=== PATIENT | female | born 1985 | race Caucasian/White ===

== ENCOUNTER 2019-09-09 00:28 | Day surgery (SDC) | payer BC ==
[2019-09-09] MEDS ORDERED: hydrALAZINE 20 MG/ML VIAL SLOW IVP PRN (01:21)
--- NOTE | 2019-09-09 04:56 | SS ---
DATE OF ADMISSION: 09/09/2019 DATE OF DISCHARGE: 09/09/2019 REGULAR PHYSICIAN: Manjit Solorzano DO, MS EVALUATING PHYSICIAN: Esteban Lopez MD CHIEF COMPLAINT: Spotting at home. HISTORY OF PRESENT ILLNESS: Ms. Pretty is a 34-year-old white G1, P0, with estimated date of confinement of December 12, 2019, who presents complaining of a small amount of spotting, which she noticed at 11 p.m. She denies associated cramping, contractions, or loss of fluid. Her care has been with Dr. Solorzano and has been uncomplicated. She states that she had an ultrasound at 20 weeks and was told her placenta was anterior. PAST MEDICAL HISTORY: None. PAST SURGICAL HISTORY: Advance teeth. CURRENT MEDICATIONS: 1. vitamins. 2. Aspirin. ALLERGIES: NO KNOWN ALLERGIES. SOCIAL HISTORY: Denies tobacco, alcohol, or drug use. FAMILY HISTORY: Unremarkable. REVIEW OF SYSTEMS: Denies nausea, vomiting, fever, chills, or ruptured membranes. PHYSICAL EXAMINATION: VITAL SIGNS: Blood pressure is 116/64. The remainder of her vital signs are stable. GENERAL: She is pleasant and in no distress. ABDOMEN: Soft, nontender, and gravid. Speculum exam of the vagina shows copious discharge consistent with yeast. No blood is seen. Her cervix is visually closed. heart rate tracing is stable with no decelerations. No uterine activity seen. ASSESSMENT: 1. A 26 and 4/7th week intrauterine . 2. Yeast infection by clinical exam. PLAN: The patient was reassured tonight that no further bleeding was seen. She was given a prescription for Diflucan 150 mg one tablet p.o. with one refill to be used in 4 or 5 days, if she remains with discharge. She was told to follow up with her next scheduled visit with Dr. Solorzano. The patient understood her discharge instructions and was sent home in good condition. Job ID: [id number]
== END 2019-09-09 01:40 | disposition home health service (06) ==
LOC: L&D/OP 00:28
PROVIDERS: ATTEND Obstetrics & Gynecology
DX: O26.852 Spotting complicating pregnancy, second trimester (principal); O98.812 Other maternal infectious and parasitic diseases complicating pregnancy, second trimester; B37.9 Candidiasis, unspecified; Z3A.26 26 weeks gestation of pregnancy
CPT/HCPCS: 99283

== ENCOUNTER 2019-11-17 10:36 | Inpatient (IN) | payer BC ==
[2019-11-17 11:58] VITALS: BMI 34.4
[2019-11-17] MEDS: Lactated Ringer's 1,000 ML IV SCH ×2 (12:10→13:35)
[2019-11-17] MEDS ORDERED: Ondansetron PF 4 MG/2 ML Vial IVP PRN ×4 (15:00→23:45)
[2019-11-17] MEDS ORDERED: hydrALAZINE 20 MG/ML VIAL SLOW IVP PRN ×4 (15:00→23:45)
--- NOTE | 2019-11-17 15:41 | ULT ---
EXAM: US Biophysical Profile PROVIDED CLINICAL HISTORY: Failed BPP in office, follow-up evaluation. COMPARISON: None FINDINGS: There is evidence of a single intrauterine gestation in breech presentation. Cardiac Doppler does dem onstrates heart tones with a heart rate of 158 bpm. The placenta is located posteriorly. Leading edge of the placenta in relation to the cervical os is not well evaluated on thi s exam. Subjectively, there is a decrease in amniotic fluid with decreased amniotic fluid index of 5.4 cm. Biophysical profile: tone-0 breathing-0 movements-2 Amniotic fluid volume-0 IMPRESSION: 1. Diminished biophysical profile score of 2 out of 8. 2. Oligohydramnios. 3. Single intrauterine gestation in breech presentation with heart tones documented. 4. Above findings were discussed with Sofía obstetrical nurse on 11/17/2019, by the weight reducing technician nologistMaria Eugenia at the termination of this exam.
[2019-11-17 17:17] LABS: #Basophils 0.1 thou/uL (0.0-0.2); #Lymphocytes 1.1 thou/uL (1.20-3.40); #Monocytes 0.4 thou/uL (0.11-0.59); #Neutrophils 5.9 thou/uL (1.40-6.50); %Basophils 1.4 % (0.0-1.0); %Eosinophils 0.5 % (0.0-10.0); %Monocytes 5.2 % (0.0-10.0); %Neutrophils 77.8 % (42.0-75.0); Hemoglobin 15.2 g/dL (12.0-16.0); Mean Corpuscular HGB CONC 33.8 g/dL (32.0-36.0); Mean Corpuscular Hemoglobin 32.5 pg (27.0-31.0); Mean Corpuscular Volume 96.3 fL (78.0-98.0); Mean Platelet Volume 9.4 fL (7.4-10.4); Platelet Count 184 thou/uL (130-400); RBC Distribution Width 12.4 % (11.5-14.5); Red Blood Cell (RBC) Count 4.69 mill/uL (4.20-5.40); White Blood Cell (WBC) Count 7.6 thou/uL (4.8-10.8)
[2019-11-17] MEDS ORDERED: Promethazine HCl 25 MG/ML VIAL IM PRN ×2 (17:50→21:01)
[2019-11-17 17:55] LABS: Syphilis Antibody Nonreactive (Nonreactive); Syphilis Antibody Index 0.05 S/CO (<1.00 Non-Reactive)
--- NOTE | 2019-11-17 17:55 | PDOC.LDHP ---
Labor and Delivery H&P Chief complaint: other (Patient was sent from office following a routine HILARIO for AMA and GDM A1. During the ultrasound, the fluid was noted to be low, so the displayer completed a BPP, which was scored as a 2/8 for breathing.) HPI: Patient is doing well. she has noticed a decrease in movement, but mainly the baby only moves at night. Current gestational age (weeks): 36 (and 3) Due date: 12/12/19 Grav: 1 Para: 0 Abnormal US findings: Yes (BPP 2/8. off for fluid, movement, tone) Current medications: pre-kiesha vitamins, other (81 mg Aspirin) Previous surgical history: other ([place] teetch extration) Allergies/Adverse Reactions: Allergies Allergy/AdvReac Type Severity Reaction Status Date / Time No Known Allergies Allergy Verified 09/09/19 00:54 Social history: none - Physical Exam Vital signs reviewed and normal: yes General: resting Heart: RRR Lungs: nonlabored breathing Abdomen: gravid Extremeties: no edema FHT: category 1 - Vaginal Exam cm dilated: 0 (BREECH presentation) - OB Labs Blood type: AB RH: positive Antibody Screen: negative HIV: negative RPR: negative HEPSAg: negative 1 hour GCT: positive 3 hour GTT: failed GBS: unknown (Pending) Urine drug screen: negative Rubella: immune - Assessment AMA, primigravida, Breech presentation, with non-reassuring surveillance. - Plan -: continuous monitoring in L&D with Cat 1 strip IV fluids BPP repeated 1600 and score remains 2/8 or 4/10 with NST Steroids were not administered due to gestational age of 36 weeks and GDM. Proceed with PCS - Dr. Cordova notified and available to be primary for PCS. Agrees with plan of care.
[2019-11-17] MEDS ORDERED: Bicitra 30 ML UDCUP PO SCH ×2 (18:00)
--- NOTE | 2019-11-17 18:03 | PDOC.EVN ---
Event Note - Event Note Event Note: The patient is a 34yo female with an iup 36wks 3days complicated by A1DM. After routine surveillance fetus was noted to have a BPP of 2/8 today in the clinic and was sent to L&D for further evaluation. Of note fetus is also breech. repeat BPP after IV hydration and several hours of monitoring by FHT a repeat BPP was again 2/8. Recommendations were made for delivery. Ms Malka Tan, her primary OB provider has asked me to perform the csection. I have introduced myself to Ms Pretty and explained the situation. The patient expressed understanding and has no questions. fetus by FHT is reassuring at this time. Plan is to proceed after a scheduled cs is completed and the room is ready.
[2019-11-17 18:08] LABS: HBSAB Concentration 62.23 mIU/mL; Hep B Surf AB Reactive (NonReactive)
[2019-11-17] MEDS: CEFAZOLIN 2 GM in Premix Bag 1 BAG IVPB SCH ×2 (18:51→18:59)
[2019-11-17] MEDS ORDERED: Dexamethasone 4 mg/ml Vial ONE (19:08)
[2019-11-17] MEDS ORDERED: Oxytocin 10 UNITS/ML VIAL ONE (19:08)
[2019-11-17] MEDS ORDERED: Ondansetron PF 4 MG/2 ML Vial ONE (19:08)
[2019-11-17] MEDS ORDERED: Ketorolac Tromethamine 30 MG/ML VIAL ONE (19:08)
[2019-11-17] MEDS ORDERED: ePHEDrine 50 MG/ML VIAL ONE (19:08)
[2019-11-17 19:39] LABS: Hemoglobin 14.3 g/dL (12.0-16.0); Mean Corpuscular HGB CONC 34.6 g/dL (32.0-36.0); Mean Corpuscular Volume 95.5 fL (78.0-98.0); Mean Platelet Volume 8.8 fL (7.4-10.4); Platelet Count 181 thou/uL (130-400); RBC Distribution Width 12.2 % (11.5-14.5); Red Blood Cell (RBC) Count 4.32 mill/uL (4.20-5.40)
[2019-11-17 20:17] LABS: Syphilis Antibody Nonreactive (Nonreactive); Syphilis Antibody Index 0.04 S/CO (<1.00 Non-Reactive)
[2019-11-17 20:34] LABS: Actual Bicarbonate (HCO3a) 25.6 mEq/L (22-28); Base Excess (BEa) -2.7 mEq/L (-2.0 to +3.0)
[2019-11-17] MEDS ORDERED: Meperidine HCl/PF 25 MG/ML VIAL SLOW IVP PRN (21:01)
[2019-11-17] MEDS ORDERED: diphenhydrAMINE 50 MG/ML VIAL IVP PRN (21:01)
[2019-11-17] MEDS ORDERED: L&D-Morphine 4 MG/ML VIAL SLOW IVP PRN (21:01)
[2019-11-17] MEDS ORDERED: Naloxone HCl 0.4 mg/ml Vial IVP PRN ×2 (21:01)
[2019-11-17] MEDS ORDERED: Ketorolac Tromethamine 30 MG/ML VIAL IVP PRN (21:01)
[2019-11-17] MEDS ORDERED: HYDROmorphone 2 MG/ML VIAL SLOW IVP PRN (21:01)
[2019-11-17] MEDS ORDERED: Ondansetron HCl/PF 4 MG/2 ML Vial IVP PRN (21:01)
[2019-11-17] MEDS ORDERED: Promethazine HCl 25 MG SUPP PR PRN (21:01)
[2019-11-17] MEDS ORDERED: Naloxone HCl 0.4 mg/ml Vial IV PRN (21:01)
[2019-11-17] MEDS ORDERED: Ketorolac Tromethamine 30 MG/ML VIAL IVP SCH (21:15)
[2019-11-17] MEDS ORDERED: Communication Order-Pharmacy FS SCH (21:15)
[2019-11-17 22:42] LABS: HBSAg Index 0.13 S/CO (0-0.99); Hep B Surf Ag Non-Reactive S/CO (NonReactive)
[2019-11-17] MEDS ORDERED: Lanolin Ointment 7 GM TUBE TOP PRN (23:45)
[2019-11-17] MEDS ORDERED: Methylergonovine 0.2 MG/ML VIAL IM PRN (23:45)
[2019-11-17] MEDS ORDERED: HYDROcodone/Acetaminophen 5/325 mg Tablet PO PRN ×2 (23:45)
[2019-11-17] MEDS ORDERED: NS / Oxytocin 40 units/1000ml 1,000 ML IV SCH (23:59)
[2019-11-17] MEDS ORDERED: Ferrous Sulfate 325 MG TAB PO SCH (23:59)
--- NOTE | 2019-11-18 03:28 | OP ---
DATE OF PROCEDURE: 11/17/2019 PREOPERATIVE DIAGNOSES: 1. Intrauterine at 36 weeks and 3 days. 2. Oligohydramnios. 3. Non-reassuring status with a biophysical profile of 2/8 on two consecutive evaluations. 4. Breech presentation. POSTOPERATIVE DIAGNOSES: 1. Intrauterine at 36 weeks and 3 days. 2. Oligohydramnios. 3. Non-reassuring status with a biophysical profile of 2/8 on two consecutive evaluations. 4. Breech presentation. PROCEDURES PERFORMED: Malka Tan certified nurse customer service specialist. COUNTS: Correct. CONDITION: Stable to recovery room. COMPLICATIONS: None. FINDINGS: Female infant delivered at 2016 hours in rosi breech presentation at 36 weeks and 3 days gestation. Apgars are 7 and 9. Weight is 2438 g. DESCRIPTION OF PROCEDURE: Ms. Nelly Pretty is a 34-year-old female, who was sent from the clinic after receiving a BPP of 2/8 in the setting of diet-controlled gestational diabetes here in Labor and Delivery with multiple hour window in between, a repeat BIPP confirmed this findings of 2/8. Given the patient's status and breech presentation, patient was recommended for delivery. The patient expressed understanding and desired to proceed. She was given spinal anesthesia and placed in a dorsal supine position in leftward tilt. A Pfannenstiel skin incision was made and carried down to the level of the fascia. The fascia was incised and extended laterally with Delong scissors. The overlying fascia was then dissected off sharply and bluntly from the underlying rectus muscles. The peritoneum was then entered into at the midline and this defect was extended laterally manually. Issac O retractor was then placed giving ample access to the lower uterine segment. A bladder flap was created, and a hysterotomy was performed in a transverse fashion in the lower uterine segment. There was little bit of difficulty getting the butt to the surgical site. Once it was done so, the legs were then delivered and with the help of a blue towel, the arms were delivered with rotation of the body. The head was then delivered with some difficulty given the shape of the head from its persistent breech presentation. With the fetus delivered, the cord was cut and clamped and the infant was handed off to the waiting attendants. Placenta delivered with manual extraction. The hysterotomy was closed with #1 Monocryl in a running locked fashion and then the serosa was reattached covering the hysterotomy site. At this point, the Issac O retractor was then removed and the hysterotomy site was inspected after irrigation and noted to be hemostatic. The peritoneum was then closed with 2-0 chromic. The fascia was closed with 0 Vicryl in a running fashion. Subcutaneous fat was closed with 2-0 plain gut in a running fashion. Skin was closed with 4-0 Monocryl in a running fashion. The patient tolerated the procedure well and was transferred to care. Job ID: [id number]
[2019-11-18 07:27] LABS: Hemoglobin 13.1 g/dL (12.0-16.0); Mean Corpuscular Hemoglobin 32.8 pg (27.0-31.0); Mean Corpuscular Volume 96.4 fL (78.0-98.0); Mean Platelet Volume 9.6 fL (7.4-10.4); Platelet Count 159 thou/uL (130-400); RBC Distribution Width 12.2 % (11.5-14.5); Red Blood Cell (RBC) Count 4.01 mill/uL (4.20-5.40); White Blood Cell (WBC) Count 11.7 thou/uL (4.8-10.8)
[2019-11-18] MEDS: Ferrous Sulfate 325 MG TAB PO SCH ×2 (08:25→15:19)
[2019-11-18] MEDS ORDERED: Adacel (T-DAP) 0.5 ML SYRINGE IM ONE (09:00)
[2019-11-18] MEDS ORDERED: HYDROcodone/Acetaminophen 5/325 mg Tablet PO PRN (09:15)
[2019-11-18] MEDS: Prenatal Vitamin 1 TAB PO SCH (09:35)
[2019-11-18] MEDS: Simethicone Chewable 80 MG TAB PO PRN ×2 (09:35→21:23)
[2019-11-18] MEDS: HYDROcodone/Acetaminophen 5/325 mg Tablet PO PRN ×3 (11:22→21:23)
[2019-11-18 12:44] LABS: SARS-CoV-2 MS2 Positive; SARS-CoV-2 N Gene Negative; SARS-CoV-2 S Gene Negative; SARS-CoV-2 by NAA Not Detected (NotDetected); SARS-CoV-2 orf1ab Negative
[2019-11-18] MEDS: Ibuprofen 800 MG TAB PO SCH (21:23)
--- NOTE | 2019-11-18 21:29 | PDOC.PP ---
Post Progress Note Post Day #: 1 Subjective: Patient is well. Has yet to ambulate. Has tubbs in place. Is bottle feeding PO intake tolerated: yes Flatus: yes Ambulation: no Vital Signs (12 hours) Temp Pulse Resp BP Pulse Ox 11/18/19 17:19 97.9 F 82 20 94/55 L 99 11/18/19 12:21 98.2 F 82 20 88/54 L Weight Weight 220 lb - Physical Examination General: NAD Respiratory: non-labored breathing Abdominal: lochia, no distention, appropriately TTP Fundus firm & at: -1 Extremities: negative homans (B) Skin: CS incision dry & intact Perineum: Urinary output 1000mL Neurological: no gross focal deficits Psychiatric: A&Ox3, normal affect Result Diagrams: 11/18/19 05:15 Additional Labs: Post Labs Hep Bs Antigen Non-Reactive S/CO (NonReactive) 11/17/19 19:19 Blood Type AB POSITIVE 11/17/19 19:19 (1) Breech presentation Code(s): O32.1XX0 - MATERNAL CARE FOR BREECH PRESENTATION, UNSP Status: Acute (2) Oligohydramnios Code(s): O41.00X0 - OLIGOHYDRAMNIOS, UNSP TRIMESTER, NOT APPLICABLE OR UNSP Status: Acute (3) Decreased movement Code(s): O36.8190 - DECREASED MOVEMENTS, UNSP TRIMESTER, UNSP Status: Acute (4) Advanced maternal age (AMA) in Code(s): CEO9197 - Status: Acute (5) Gestational diabetes Code(s): O24.419 - GESTATIONAL DIABETES MELLITUS IN , UNSP CONTROL Status: Acute - Assessment/Plan G1 now P1 SP LTCS at 36 weeks for failed survelliance and breech presentation with NML PPD1 exam P: routine care Ambulation Advanced diet as tolerated. Evaluated for discharge tomorrow or the following day
[2019-11-19] MEDS: HYDROcodone/Acetaminophen 5/325 mg Tablet PO PRN ×3 (01:13→19:02)
[2019-11-19] MEDS: Ibuprofen 800 MG TAB PO SCH ×3 (05:25→23:03)
[2019-11-19] MEDS ORDERED: Ibuprofen 800 MG TAB PO SCH (06:00)
[2019-11-19] MEDS: Prenatal Vitamin 1 TAB PO SCH (08:01)
[2019-11-19] MEDS: Ferrous Sulfate 325 MG TAB PO SCH ×2 (10:34→16:52)
[2019-11-20] MEDS: Ibuprofen 800 MG TAB PO SCH ×2 (05:02→13:42)
[2019-11-20] MEDS: Ferrous Sulfate 325 MG TAB PO SCH (08:22)
[2019-11-20] MEDS: Prenatal Vitamin 1 TAB PO SCH (08:33)
[2019-11-20 10:11] VITALS: BP 112/67; TEMP 97.9
--- NOTE | 2019-11-20 14:57 | PDOC.PP ---
Post Progress Note Post Day #: POD3 Subjective: Tolerating regular diet. Voices no c/o. Wants to go home. PO intake tolerated: yes Flatus: yes Ambulation: yes Vital Signs (12 hours) Temp Pulse Resp BP Pulse Ox 11/20/19 08:33 97.9 F 74 18 112/67 97 Weight Weight 99.79 kg - Physical Examination General: NAD Respiratory: non-labored breathing Abdominal: no distention Skin: CS incision dry & intact Neurological: no gross focal deficits Result Diagrams: 11/18/19 05:15 Additional Labs: Post Labs Hep Bs Antigen Non-Reactive S/CO (NonReactive) 11/17/19 19:19 Blood Type AB POSITIVE 11/17/19 19:19 - Assessment/Plan Doing well s/p C/S. DC home. Precautions. RTC 2 weeks with Arlene Tan.
[2019-11-20] MEDS: HYDROcodone/Acetaminophen 5/325 mg Tablet PO PRN (15:26)
== END 2019-11-20 15:45 | disposition home or self-care (01) | DRG 787 ==
LOC: L&D/OP 10:36 → L&D-LIB 17:36 → 3SW 23:45
PROVIDERS: ADMIT Obstetrics & Gynecology; ATTEND Obstetrics & Gynecology
PROC: 10D00Z1 Extraction of Products of Conception, Low, Open Approach (ICD-10-PCS; principal; 2019-11-17)
DX: O36.8130 Decreased fetal movements, third trimester, not applicable or unspecified (principal); O41.03X0 Oligohydramnios, third trimester, not applicable or unspecified; Z3A.36 36 weeks gestation of pregnancy; Z37.0 Single live birth; O24.429 Gestational diabetes mellitus in childbirth, unspecified control; O32.1XX0 Maternal care for breech presentation, not applicable or unspecified; Z20.828 Contact with and (suspected) exposure to other viral communicable diseases
CPT/HCPCS: 36415; 76819; 82805; 85025; 85027; 86706; 86780; 86850; 86900; 86901; 87081; 87340; 87635; 88307; J0690; J1100; J1885; J2270; J2310; J2405; J3490; U0003

== ENCOUNTER 2022-04-24 09:00 | Outpatient (CLI) | payer BC | END 2022-04-24 09:01 | disposition home or self-care (01) | LOC: BICRAD 09:00 | PROVIDERS: ATTEND Nurse Practitioner Family | DX: M54.50 Low back pain, unspecified (principal); M47.816 Spondylosis without myelopathy or radiculopathy, lumbar region | CPT/HCPCS: 72100; 72170 ==

== ENCOUNTER 2024-10-22 02:08 | Emergency (ER) | payer BC ==
[2024-10-22] MEDS ORDERED: Ketorolac Tromethamine 30 MG (1 mL) VIAL ONE (03:23)
[2024-10-22] MEDS ORDERED: Ondansetron PF 4 MG/2 ML Vial ONE (03:24)
[2024-10-22 03:34] LABS: #Basophils Less than 0.03 10x3/uL (0.0-0.2); #Eosinophils 0.13 10x3/uL (0.0-0.7); #Monocytes 0.70 10x3/uL (0.11-0.59); #Neutrophils 6.61 10x3/uL (1.40-6.50); %Basophils 0.1 % (0.0-1.0); %Eosinophils 1.5 % (0.0-10.0); %Lymphocytes 14.7 % (21.0-51.0); %Monocytes 8.0 % (0.0-10.0); %Neutrophils 75.5 % (42.0-75.0); Hematocrit 40.8 % (36.0-47.0); Hemoglobin 13.8 g/dL (12.0-16.0); Mean Corpuscular Hemoglobin 30.7 pg (27.0-31.0); Mean Corpuscular Volume 90.7 fL (78.0-98.0); Platelet Count 238 10x3/uL (130-400); Red Blood Cell (RBC) Count 4.50 mill/uL (4.20-5.40); White Blood Cell (WBC) Count 8.76 10x3/uL (4.8-10.8)
[2024-10-22 03:54] LABS: ALT (SGPT) 15 U/L (Less than 34); AST (SGOT) 23 U/L (11-34); Albumin 3.5 g/dL (3.1-4.5); Alkaline Phosphatase 85 U/L (40-110); Anion Gap 16 mmol/L (10-20); BUN (Urea Nitrogen) 16 mg/dL (7.0-18.7); Bilirubin, Total 0.2 mg/dL (0.3-1.2); Calc. Creatinine Clearance 0 mL/min (70-130); Calcium 8.8 mg/dL (7.8-10.44); Carbon Dioxide 24 mmol/L (22-29); Chloride 108 mmol/L (98-107); Globulin 3.4 g/dL (2.4-3.5); Glucose 116 mg/dL (70-105); Lipase 32 U/L (8-78); Potassium 4.2 mmol/L (3.5-5.1); Sodium 144 mmol/L (136-145)
[2024-10-22 03:57] LABS: BHCG - Serum Negative (NEGATIVE); Pregs Control Background? CLEAR/WHITE (CLR/WHITE); Pregs Control Bar Appear? YES (CONTROL BAR)
== END 2024-10-22 07:05 | disposition home or self-care (01) ==
LOC: ERS 02:08
DX: N94.89 Other specified conditions associated with female genital organs and menstrual cycle (principal); D25.9 Leiomyoma of uterus, unspecified; Z55.6 Problems related to health literacy
CPT/HCPCS: 74177; 76856; 80053; 83690; 84703; 85025; 93005; 96374; 96375; J1885; J2270; J2405